=== PATIENT | male | born 1960 | race Caucasian/White ===

== ENCOUNTER → 2019-01-24 | Outpatient (CLI) | payer OTHER, SELFPAY ==
--- NOTE | 2019-01-24 12:04 | RAD_ITS ---
STUDY: X-RAY - LUMBAR SPINE REASON FOR EXAM: Male, 58 years old. Lower back pain TECHNIQUE: 5 view(s) of the lumbar spine were obtained. COMPARISON: None FINDINGS: There is straightening of the normal lumbar lordosis. There is a mild levoscoliosis of the lumbar spine. There is a normal alignment of the vertebrae in the lateral view. Normal vertebral bodies and endplates. Mild disc space narrowing. There is no demonstrated fracture. The soft tissue structures are unremarkable. Normal SI joints. RAD/L/S Spine Min 4 Views IMPRESSION: Degenerative changes of the spine, as detailed above. Electronically Signed: Beck Cates MD at 12:44 EDT , Service support ,
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
== END | disposition home or self-care (01) ==
PROVIDERS: Family Provider Family Medicine; PCP Family Medicine; Referring Provider Family Medicine; Visit Provider Family Medicine
DX: M54.5 Low back pain (principal); M41.9 Scoliosis, unspecified
CPT/HCPCS: 72081; 72110

== ENCOUNTER → 2019-02-21 | Outpatient (CLI) | payer OTHER, SELFPAY ==
[2019-02-21 10:12] LABS: Absolute Lymphocyte Count 4.24 X10^3/uL (0.83-4.51); Absolute Neutrophil Count 3.7 X10^3/uL (2.0-7.7); Basophil# 0.05 X10^3/uL; Basophil% 0.6 % (0-1); Eosinophil# 0.11 X10^3/uL; Eosinophils% 1.3 % (0-5); Hematocrit 42.8 % (40-54); Hemoglobin 14.2 g/dL (13.0-16.5); Lymphocyte # 4.24 X10^3/ul (4.0); Lymphocyte % 49.5 % (19-41); Mean Corp Hgb Conc 33.2 g/dL (32-36); Mean Corpuscular Hgb 29.4 pg (27.0-32.0); Mean Corpuscular Volume 88.6 fL (80-94); Mean Platelet Vol. 10.7 fl (6.2-12.0); Monocyte# 0.48 X10^3/uL; Monocyte% 5.6 % (0-10); NRBC Flagged by Analyzer 0 % (0-5); Neutrophil # 3.67 X10^3/uL (2.7-7.7); Neutrophil % 42.8 % (47-70); Platelet Count 187 K/mm3 (150-450); RBC Distribution Width CV 13.1 % (11.6-14.6); RBC Distribution Width SD 42.3 fl (35.1-43.9); Red Blood Count 4.83 M/mm3 (4.6-6.2); White Blood Count 8.6 K/mm3 (4.4-11.0)
[2019-02-21 10:43] LABS: ALB/GLOB Ratio 1.4 RATIO (0.9-2.4); AST(SGOT) 18 U/L (15-37); Alanine Aminotransfer ALT/SGPT 26 U/L (16-61); Albumin, Serum 3.9 g/dL (3.2-5.0); Alkaline Phosphatase 81 U/L (45-117); Anion Gap 6 (5-15); BUN 18 mg/dL (7-18); BUN/Creat Ratio 16.8 RATIO (10-20); Calcium,Total 8.7 mg/dL (8.5-10.1); Chloride 107 mmol/L (98-107); Cholesterol 200 mg/dL (200); Creatinine, Serum 1.07 mg/dL (0.70-1.30); EST Glomerular Filtration Rate 75 mL/min (>60); Est Glom Filt Rate - Afr Amer 91 mL/min (>60); Globulin 2.7 g/dL (2.2-4.2); Glucose 100 mg/dL (74-106); High Density Lipoprotein 53 mg/dL; PSA,Total - Annual Screen 1.07 ng/mL (0.00-4.00); Potassium 4.6 mmol/L (3.5-5.1); Protein, Total 6.6 g/dL (6.4-8.2); Sodium Level 144 mmol/L (136-145); Thyroid Stim Hormone (TSH) 1.07 uIU/mL (0.358-3.74); Triglycerides 88 mg/dL; Very Low Density Lipoprotein 18 mg/dL (5-40)
[2019-02-21 10:47] LABS: Vitamin B12 227 pg/mL (211-911)
== END | disposition home or self-care (01) ==
LOC: MFPLAB 09:07
PROVIDERS: Family Provider Family Medicine; PCP Family Medicine; Referring Provider Family Medicine; Visit Provider Family Medicine
DX: Z00.00 Encounter for general adult medical examination without abnormal findings (principal); E53.8 Deficiency of other specified B group vitamins; Z12.5 Encounter for screening for malignant neoplasm of prostate
CPT/HCPCS: 36415; 80053; 80061; 82607; 84153; 84443; 85025; G0103

== ENCOUNTER 2019-03-15 08:24 | Day surgery (SDC) | payer OTHER, SELFPAY ==
[2019-02-27 08:09] VITALS: BMI 25.5
--- NOTE | 2019-03-04 11:59 | HP_ITS ---
Intake Vital Signs 02/27/19 Height 6 ft 2 in 02/27/19 Weight: 199 lb 02/27/19 Body Mass Index (BMI) 25.5 02/27/19 Blood Pressure 151/88 H 02/27/19 Blood Pressure Location Rt brachial 02/27/19 Respiratory Rate 18 Intake Visit Reasons: C-Scope Consult, Subcutaneous Mass Lt Thigh Shirt Operator Required: No Is patient in pain?: No Allergies No Known Allergies Allergy (Unverified 02/27/19 08:09) Medications melatonin 5 mg capsule mg PO cap 02/27/19 [History Confirmed 02/27/19] vitamin B complex tablet 1 tab PO DAILY 02/27/19 [History Confirmed 02/27/19] PFSH Medical History posterior left leg mass (Acute) Surgical History S/P appendectomy (Acute) s/p neck surgery (Acute) Family History Mother Hypertension Social History (Updated 03/04/19 @ 12:00 by Gregg Payton MD) Smoking Status: Never smoker alcohol intake: current alcohol intake frequency: a few times a month HPI HPI HPI: SUSAN DIAS, is a 58 M who presents to the office today for HPI HPI Surgical H&P: Yes HPI: SUSAN DIAS, is a 58 M who presents to the office today for Presents for screening colonoscopy.Patient has no family history of colon cancer. His weight is been stable. He has been tolerating a diet without difficulty.Patient has never had a colonoscopy. Patient is also concerned about a mass on the posterior aspect of his left thigh it is been slightly growing over the last several years. ROS General General: No weight change, appetite, fatigue, colon cancer, breast cancer or weakness HEENT HEENT: No difficulty swallowing, eye injury, eye surgery, swollen glands or hoarseness Endo Endocrine: No thyroid disease, diabetes mellitus, thyroid cancer, Hair loss, heat intolerance or cold intolerance Skin Skin: No rash or changing moles Breast Breast: No left breast lump, right breast lump, nipple discharge, breast pain, abnormal mammogram, abnormal US or breast enlargement Musc Musculoskeletal: Yes back problems; no arthritis, rheumatoid arthritis, gout or joint pain Cardio Cardiovascular: No murmur, pacemaker, heart disease, atrial fibrillation, high blood pressure, heart attack, heart stent, palpitations, shortness of breat with exertion or chest pain Psych Psychiatric: No depression, anxiety or hearing voices Resp Respiratory: No shortness of breath, No sleep apnea, No cough, No COPD, No asthma, No emphysema, No wheezing Gastro Gastrointestinal: No abdominal pain, No nausea or vomiting, No diarrhea, No constipation, No blood in stool, No acid reflux, No hemorrhoids, No ulcers, No gallbladder problem, No black,tarry stools Arnold Hematologic: No blood thinners, No blood disorders, No bleeding, No anemia, No blood clots Neuro Neurologic: No system reviewed and no additional complaints, except as docu, No as per HPI, No abnormal walking, No abnormal hearing, No abnormal movements, No abnormal speech, No behavioral changes, No burning sensations, No confusion, No seizure-like activity, No unsteadiness, No dizziness, No localized weakness, No frequent falls, No headache(s), No lack of coordination, No loss of vision, No memory loss, Yes numbness, No other visual disturbances, No radiating pain, No restless legs, No sensory deficit, No fainting, Yes tingling, No tremor(s), No weakness, No other Exam Const General: no acute distress, well developed, well hydrated Orientation: oriented to person, oriented to place, oriented to time [facility] Head: normocephalic, atraumatic Ears: external ears normal Mouth: moist mucous membranes Eyes Sclera: sclerae normal Pupils: normal by confrontation Neck Neck: no lymphadenopathy noted Neck mass: No Thyroid: thyroid normal, symmetrical Chest Chest palpation & inspection: normal inspection of the chest Breast Palpation: No nipple discharge Resp Effort & Inspection: normal respiratory effort Auscultation: clear to auscultation bilaterally Percussion: percussion normal Cardio Rate: regular rate Rhythm: regular rhythm Heart Sounds: no murmurs GI Palpation: soft, no hepatosplenomegaly, no masses, nontender Rectal Exam: other Other: Rectal exam deferred. Skin Other: Patient has a rather large well-circumscribed subcutaneous mass in the posterior aspect of his left thigh above the knee. It is nontender. There is no signs of cellulitis. It does not appear to be contiguous with the joint. Extrem General: normal to inspection, no clubbing, cyanosis or edema Assessment & Plan Problems 1. Encounter for screening colonoscopy Z12.11 2. Lesion of subcutaneous tissue L98.9 Plan I have discussed the above with the patient. I have offered the patient colonoscopy for evaluation. I have explained the risks/benefits of the procedure and described the procedure. I have discussed the risks with the patient, including but not limited to: infection, bleeding, perforation of the GI tract requiring emergency surgery, inability to complete the procedure, injury to any internal organs, complications of anesthesia, etc. - the patient understands and agrees to proceed. I have answered all the patient's questions to the patient's satisfaction and the patient has no further questions. The patient has been given instructions for the colon cleansing preparation. Once is complete we will then assess the best surgical interventions for the subcutaneous lesion on his posterior thigh. Given its overall size and its location I think this would be best removed in the OR. Orders Orders: Colonoscopy 02/27/19 Z12.11 Coding Level of Care Code Off vis,new,level 3 Diagnoses Encounter for screening colonoscopy Z12.11 Lesion of subcutaneous tissue L98.9 03/04/19 1200 <Electronically signed by Gregg evans MD> Date _ Gregg Payton MD I have re-examined the patient. There are no clinical changes since date of exam.
[2019-03-15] VITALS (7 sets, daily range): BP systolic 115–127; BP diastolic 76–85; PULSE 64–88; RESP 16–18; TEMP 36.3–36.9; O2SAT 95–99; BMI 24.7
[2019-03-15] MEDS: Lactated Ringers 1,000 ML 75 ML IV (09:13)
--- NOTE | 2019-03-15 16:52 | OP.ENDO_ITS ---
03/16/2019 Hayden Chambers [address] [place] [address] Re : Colonoscopy procedure for Parker Ziegler Dear Dr. Chambers This procedure was performed on Friday, March 15, 2019. My impressions and recommendations are as follows: Impressions : - Non-bleeding internal hemorrhoids. - Diverticulosis in the sigmoid colon. No specimens collected. - The examined portion of the ileum was normal. - The examination was otherwise normal. Recommendations : - Discharge patient to home. - Resume previous diet. - Continue present medications. - Repeat colonoscopy in 10 years for screening purposes. - Return to my office in 1 week. My findings are described in the full procedure note, which is enclosed. If I can be of further assistance, please feel free to contact me at Doctor phone number(s): , Fax: [phone], Work: . Sincerely, MD Gregg Tierney MD 03/15/2019 10:32:38 AM This report has been signed electronically.
== END 2019-03-15 11:20 | disposition home or self-care (01) ==
LOC: EN 08:25 → AC 08:29
PROVIDERS: Family Provider Family Medicine; PCP Family Medicine; Referring Provider Family Medicine; Visit Provider Surgery
PROC: 0DJD8ZZ Inspection of Lower Intestinal Tract, Via Natural or Artificial Opening Endoscopic (ICD-10-PCS; CPT 45378; principal; 2019-03-15 09:40)
DX: Z12.11 Encounter for screening for malignant neoplasm of colon (principal); K57.30 Diverticulosis of large intestine without perforation or abscess without bleeding; K64.8 Other hemorrhoids
CPT/HCPCS: 45378; J7120; J2405

== ENCOUNTER → 2020-02-28 08:55 | Outpatient (CLI) | payer OTHER, SELFPAY ==
[2019-03-15 09:01] VITALS: BMI 24.7
[2020-02-28 10:11] LABS: Absolute Lymphocyte Count 4.74 X10^3/uL (0.83-4.51); Absolute Neutrophil Count 4.9 X10^3/uL (2.0-7.7); Basophil# 0.05 X10^3/uL; Basophil% 0.5 % (0-1); Eosinophil# 0.13 X10^3/uL; Eosinophils% 1.3 % (0-5); Hematocrit 42.3 % (40-54); Hemoglobin 14.2 g/dL (13.0-16.5); Lymphocyte # 4.74 X10^3/ul (4.0); Lymphocyte % 45.8 % (19-41); Mean Corp Hgb Conc 33.6 g/dL (32-36); Mean Corpuscular Hgb 30.7 pg (27.0-32.0); Mean Corpuscular Volume 91.6 fL (80-94); Mean Platelet Vol. 10.1 fl (6.2-12.0); Monocyte# 0.49 X10^3/uL; Monocyte% 4.7 % (0-10); NRBC Flagged by Analyzer 0 % (0-5); Neutrophil % 47.4 % (47-70); Platelet Count 172 K/mm3 (150-450); RBC Distribution Width CV 13.1 % (11.6-14.6); RBC Distribution Width SD 42.5 fl (35.1-43.9); Red Blood Count 4.62 M/mm3 (4.6-6.2); White Blood Count 10.3 K/mm3 (4.4-11.0)
[2020-02-28 10:32] LABS: ALB/GLOB Ratio 1.2 RATIO (0.9-2.4); AST(SGOT) 18 U/L (15-37); Alanine Aminotransfer ALT/SGPT 26 U/L (16-61); Albumin, Serum 3.9 g/dL (3.2-5.0); Alkaline Phosphatase 88 U/L (45-117); Anion Gap 6 (5-15); BUN 19 mg/dL (7-18); BUN/Creat Ratio 15.7 RATIO (10-20); Calcium,Total 8.7 mg/dL (8.5-10.1); Chloride 107 mmol/L (98-107); Cholesterol 194 mg/dL (200); Creatinine, Serum 1.21 mg/dL (0.70-1.30); EST Glomerular Filtration Rate 65 mL/min (>60); Est Glom Filt Rate - Afr Amer 79 mL/min (>60); Globulin 3.2 g/dL (2.2-4.2); Glucose 122 mg/dL (74-106); High Density Lipoprotein 43 mg/dL; PSA,Total - Annual Screen 0.82 ng/mL (0.00-4.00); Protein, Total 7.1 g/dL (6.4-8.2); Sodium Level 140 mmol/L (136-145); Triglycerides 156 mg/dL; Very Low Density Lipoprotein 31 mg/dL (5-40)
[2020-02-29 11:08] LABS: Hemoglobin A1c 5.5 % (3.8-5.6)
== END ==
PROVIDERS: PCP Family Medicine; Referring Provider Family Medicine; Visit Provider Family Medicine
DX: Z00.00 Encounter for general adult medical examination without abnormal findings (principal); Z12.5 Encounter for screening for malignant neoplasm of prostate; R73.09 Other abnormal glucose
CPT/HCPCS: 36415; 80053; 80061; 83036; 84153; 85025; G0103

== ENCOUNTER 2020-04-19 05:41 | Day surgery (SDC) | payer OTHER, SELFPAY ==
[2020-03-01 09:17] VITALS: BMI 24.7
--- NOTE | 2020-03-12 05:11 | HP_ITS ---
Intake Vital Signs 03/01/20 BMI 24.7 03/01/20 Height 6 ft 2 in 03/01/20 Weight: 202 lb 03/01/20 BMI 25.9 03/01/20 BP 114/73 03/01/20 Blood Pressure Location Rt brachial 03/01/20 Position Sitting 03/01/20 Respiration 18 03/01/20 Pulse 80 03/01/20 Pulse Source Monitor 03/01/20 Temp 97.6 F L 03/01/20 Temp Source Temporal 03/01/20 Pulse Oximetry (%) 96 03/01/20 Oxygen Delivery Method room air Intake Visit Reasons: SUBCUTANEOUS MASS Chief Complaint: posterior left leg mass Bulk Intake Worker Required: No Is patient in pain?: No Allergies No Known Allergies Allergy (Verified 03/01/20 09:17) Medications melatonin 5 mg capsule 5 mg PO QHS cap 02/27/19 [History Confirmed 03/01/20] vitamin B complex 1 tab PO DAILY 02/27/19 [History Confirmed 03/01/20] PFSH Medical History posterior left leg mass (Acute) Surgical History History of colonoscopy (Acute ~2019) S/P appendectomy (Acute) s/p neck surgery (Acute) Family History Mother Hypertension Social History (Updated 03/12/20 @ 17:[address] Gregg Payton MD) Smoking Status: Never smoker alcohol intake: current alcohol intake frequency: a few times a month substance use type: does not use HPI HPI Surgical H&P: Yes HPI: SUSAN DIAS, is a 59 M who presents to the office today for Evaluation of a subcutaneous mass on his left posterior thigh. Patient has had this there for many years. Is been gradually increasing in size. Occasionally will get uncomfortable for him he is never had any trauma to the area it is never been infected nor draining. ROS General General: No weight change, appetite, fatigue, colon cancer, breast cancer or weakness HEENT HEENT: No difficulty swallowing, eye injury, eye surgery, swollen glands or hoarseness Endo Endocrine: No thyroid disease, diabetes mellitus, thyroid cancer, Hair loss, heat intolerance or cold intolerance Skin Skin: No rash or changing moles Breast Breast: No left breast lump, right breast lump, nipple discharge, breast pain, abnormal mammogram, abnormal US or breast enlargement Musc Musculoskeletal: Yes back problems; no arthritis, rheumatoid arthritis, gout or joint pain Cardio Cardiovascular: No murmur, pacemaker, heart disease, atrial fibrillation, high blood pressure, heart attack, heart stent, palpitations, shortness of breat with exertion or chest pain Psych Psychiatric: No depression, anxiety or hearing voices Resp Respiratory: No shortness of breath, No sleep apnea, No cough, No COPD, No asthma, No emphysema, No wheezing Gastro Gastrointestinal: No abdominal pain, No nausea or vomiting, No diarrhea, No constipation, No blood in stool, No acid reflux, No hemorrhoids, No ulcers, No gallbladder problem, No black,tarry stools Arnold Hematologic: No blood thinners, No blood disorders, No bleeding, No anemia, No blood clots Neuro Neurologic: No system reviewed and no additional complaints, except as docu, No as per HPI, No abnormal walking, No abnormal hearing, No abnormal movements, No abnormal speech, No behavioral changes, No burning sensations, No confusion, No seizure-like activity, No unsteadiness, No dizziness, No localized weakness, No frequent falls, No headache(s), No lack of coordination, No loss of vision, No memory loss, Yes numbness, No other visual disturbances, No radiating pain, No restless legs, No sensory deficit, No fainting, Yes tingling, No tremor(s), No weakness, No other Exam Const General: no acute distress, well developed, well hydrated Orientation: oriented to person, oriented to place, oriented to time [facility] Head: normocephalic, atraumatic Ears: external ears normal Mouth: moist mucous membranes Eyes Sclera: sclerae normal Pupils: normal by confrontation Neck Neck: no lymphadenopathy noted Neck mass: No Thyroid: thyroid normal, symmetrical Chest Chest palpation & inspection: normal inspection of the chest Breast Palpation: No nipple discharge Resp Effort & Inspection: normal respiratory effort Auscultation: clear to auscultation bilaterally Percussion: percussion normal Cardio Rate: regular rate Rhythm: regular rhythm Heart Sounds: no murmurs GI Palpation: soft, no hepatosplenomegaly, no masses, nontender Rectal Exam: other Other: Rectal exam deferred. Skin Other: Patient has approximately a 4 cm subcutaneous fatty lesion on his left posterior lower thigh. Is nontender and freely mobile there is no sign of redness or infection Extrem General: normal to inspection, no clubbing, cyanosis or edema Assessment & Plan Problems 1. Lesion of subcutaneous tissue L98.9 Plan My plan is to excise this in the OR. Risk benefits include bleeding infection. There is a chance that this could recur and there is a chance to having numbness in the back of his posterior thigh area. Patient also understands that there is a risk of blood clots heart attacks pneumonia strokes up to and including pulmonary embolus and/or . All questions asked were answered and he is willing to proceed. Coding Level of Care Code Off vis,new,level 3 Diagnoses Lesion of subcutaneous tissue L98.9 COVID (Procedure Consent) Procedure Criteria Procedure Criteria: Yes Elective The surgeon/proceduralist and patient have discussed in detail the risk of exposure to and/or potential harm posed by the COVID-19 virus with having a surgery/procedure at this time versus the risk of? delaying the surgery/procedure. It is not possible to know either the risk of delaying the surgery or procedure or chance of getting an infection with perfect accuracy, but a joint decision was made between the patient and the surgeon/proceduralist ?to proceed at this time with the scheduled surgery/procedure as indicated on the consent form. <Electronically signed by Gregg Payton MD> Date _ Gregg Payton MD I have re-examined the patient. There are no clinical changes since date of exam.
[2020-04-19] VITALS (7 sets, daily range): BP systolic 108–125; BP diastolic 62–82; PULSE 60–82; RESP 16; TEMP 36.1–36.6; O2SAT 95–97; BMI 25.6
[2020-04-19] MEDS: Lactated Ringers 1,000 ML 100 ML IV (06:32)
--- NOTE | 2020-04-19 07:03 | MASS_PTH ---
PATIENT: SUSAN DIAS LOC: [facility] U#:[id number] AGE/SX: 60/M ROOM: RE04/19/[address]: Dr. Gregg Payton MD : 1960 BED: DIS: 04/19/2020 SPEC #: [id number] RECD: 04/19/20 10:38 STATUS: WHIT FIORDALIZA #: [id number] RADHA: 04/19/20 07:[address]: Gregg Payton DEPT: SURGICAL PATHOLOGY RECD BY: Martin Valentin ENTERED: 04/19/20 12:12 SP TYPE: Mass OTHR DR: Dr. Hayden Chambers MD Tissues: Thigh, NOS Procedures: Surgery Specimen Level III HEADER OPERATION: Excision posterior thigh mass PRE-OP DIAGNOSIS: Lesion of subcutaneous tissue TISSUE SUBMITTED: Posterior left thigh mass MICROSCOPIC DIAGNOSIS Left posterior thigh mass, excision: Mature adipose tissue consistent with lipoma. AM:santana 9/28/20 MICROSCOPIC DESCRIPTION Slides are reviewed. GROSS DESCRIPTION Received in fixative is one container labeled with the patient's name and designated posterior left thigh mass. The specimen consists of an irregular piece of adipose tissue measuring 5 x 4 x 1.5 cm. The external surface is inked. Sections reveal yellow adipose cut surfaces without areas of hemorrhage, necrosis or cystic degeneration. Nuclear Process Engineer sections are submitted in two cassettes. / SJ:santana 04/19/20 TC:1 CPT: 76139
--- NOTE | 2020-04-19 07:05 | PCM.HP.BLA ---
History and Physical Date of Admission: 04/19/20 [facility] Medical Records Department [address] [place] [address] History and Physical MR#: [id number] Acct: [id number] Name: SUSAN DIAS Rep #: [id number] : 1960 58 From: Gregg Payton MD PCP: Hayden Chambers MD Status: [facility] Location: [place] [address]- Intake Vital Signs 02/27/19 Height 6 ft 2 in 02/27/19 Weight: 199 lb 02/27/19 Body Mass Index (BMI) 25.5 02/27/19 Blood Pressure 151/88 H 02/27/19 Blood Pressure Location Rt brachial 02/27/19 Respiratory Rate 18 Intake Visit Reasons: C-Scope Consult, Subcutaneous Mass Lt Thigh Recruiter Manager Required: No Is patient in pain?: No Allergies No Known Allergies Allergy (Unverified 02/27/19 08:09) Medications melatonin 5 mg capsule mg PO cap 02/27/19 [History Confirmed 02/27/19] vitamin B complex tablet 1 tab PO DAILY 02/27/19 [History Confirmed 02/27/19] PFSH Medical History posterior left leg mass (Acute) Surgical History S/P appendectomy (Acute) s/p neck surgery (Acute) Family History Mother Hypertension Social History (Updated 03/04/19 @ 12:00 by Gregg Payton MD) Smoking Status: Never smoker alcohol intake: current alcohol intake frequency: a few times a month HPI HPI HPI: SUSAN DIAS is a 58 M who presents to the office today for HPI HPI Surgical H&P: Yes HPI: SUSAN DIAS is a 58 M who presents to the office today for Presents for screening colonoscopy.Patient has no family history of colon cancer. His weight is been stable. He has been tolerating a diet without difficulty.Patient has never had a colonoscopy. Patient is also concerned about a mass on the posterior aspect of his left thigh it is been slightly growing over the last several years. ROS General General: No weight change, appetite, fatigue, colon cancer, breast cancer or weakness HEENT HEENT: No difficulty swallowing, eye injury, eye surgery, swollen glands or hoarseness Endo Endocrine: No thyroid disease, diabetes mellitus, thyroid cancer, Hair loss, heat intolerance or cold intolerance Skin Skin: No rash or changing moles Breast Breast: No left breast lump, right breast lump, nipple discharge, breast pain, abnormal mammogram, abnormal US or breast enlargement Musc Musculoskeletal: Yes back problems; no arthritis, rheumatoid arthritis, gout or joint pain Cardio Cardiovascular: No murmur, pacemaker, heart disease, atrial fibrillation, high blood pressure, heart attack, heart stent, palpitations, shortness of breat with exertion or chest pain Psych Psychiatric: No depression, anxiety or hearing voices Resp Respiratory: No shortness of breath, No sleep apnea, No cough, No COPD, No asthma, No emphysema, No wheezing Gastro Gastrointestinal: No abdominal pain, No nausea or vomiting, No diarrhea, No constipation, No blood in stool, No acid reflux, No hemorrhoids, No ulcers, No gallbladder problem, No black,tarry stools Arnold Hematologic: No blood thinners, No blood disorders, No bleeding, No anemia, No blood clots Neuro Neurologic: No system reviewed and no additional complaints, except as docu, No as per HPI, No abnormal walking, No abnormal hearing, No abnormal movements, No abnormal speech, No behavioral changes, No burning sensations, No confusion, No seizure-like activity, No unsteadiness, No dizziness, No localized weakness, No frequent falls, No headache(s), No lack of coordination, No loss of vision, No memory loss, Yes numbness, No other visual disturbances, No radiating pain, No restless legs, No sensory deficit, No fainting, Yes tingling, No tremor(s), No weakness, No other Exam Const General: no acute distress, well developed, well hydrated Orientation: oriented to person, oriented to place, oriented to time [facility] Head: normocephalic, atraumatic Ears: external ears normal Mouth: moist mucous membranes Eyes Sclera: sclerae normal Pupils: normal by confrontation Neck Neck: no lymphadenopathy noted Neck mass: No Thyroid: thyroid normal, symmetrical Chest Chest palpation & inspection: normal inspection of the chest Breast Palpation: No nipple discharge Resp Effort & Inspection: normal respiratory effort Auscultation: clear to auscultation bilaterally Percussion: percussion normal Cardio Rate: regular rate Rhythm: regular rhythm Heart Sounds: no murmurs GI Palpation: soft, no hepatosplenomegaly, no masses, nontender Rectal Exam: other Other: Rectal exam deferred. Skin Other: Patient has a rather large well-circumscribed subcutaneous mass in the posterior aspect of his left thigh above the knee. It is nontender. There is no signs of cellulitis. It does not appear to be contiguous with the joint. Extrem General: normal to inspection, no clubbing, cyanosis or edema Assessment & Plan Problems 1. Encounter for screening colonoscopy Z12.11 2. Lesion of subcutaneous tissue L98.9 Plan I have discussed the above with the patient. I have offered the patient colonoscopy for evaluation. I have explained the risks/benefits of the procedure and described the procedure. I have discussed the risks with the patient, including but not limited to: infection, bleeding, perforation of the GI tract requiring emergency surgery, inability to complete the procedure, injury to any internal organs, complications of anesthesia, etc. - the patient understands and agrees to proceed. I have answered all the patient's questions to the patient's satisfaction and the patient has no further questions. The patient has been given instructions for the colon cleansing preparation. Once is complete we will then assess the best surgical interventions for the subcutaneous lesion on his posterior thigh. Given its overall size and its location I think this would be best removed in the OR. Orders Orders: Colonoscopy 02/27/19 Z12.11 Coding Level of Care Code Off vis,new,level 3 Diagnoses Encounter for screening colonoscopy Z12.11 Lesion of subcutaneous tissue L98.9 <Electronically signed by Gregg Payton MD> Date Gregg Payton MD I have re-examined the patient. There are no clinical changes since date of exam.
[2020-04-19] MEDS: Cefazolin 2 GM in 0.9% Normal Saline 100 ML IV (07:40)
--- NOTE | 2020-04-19 07:58 | PCM.OPRPT ---
Problem List (1) Lesion of subcutaneous tissue Status: Acute Report of Operation Date of Procedure: 04/19/20 Pre-Operative Diagnosis: Lesion of subcutaneous tissue left posterior leg Post-Operative Diagnosis: Same Surgery/Procedure Performed:: Excision of a 5 x 7 cm subcutaneous lesion to left posterior leg Type of Anesthesia:: General Anesthesiologist: Francisco Javier Membreno Specimen's removed: 7 cm subcutaneous lesion to right posterior leg Drains: None Estimated Blood Loss (mL): < 25 cc Fluids Replaced: 600 cc LR Description of Procedure: Patient was brought in the operating room. Placed in the supine position. Under excellent general endotracheal ovation patient was placed in the prone position a properly padded. Left posterior leg was sterilely prepped draped in usual fashion. Local was injected. I dissected down into the subcutaneous tissues and removed a 7 cm fatty subcutaneous mass that was anterior to the fascia of the posterior leg. Used electrocautery for good of a stasis. I injected more local. I brought the wound together with deep dermal stitches of 3-0 Vicryl. Then a running 4-0 Monocryl. Steri-Strips were applied sterile dressings were applied and the patient tolerated the procedure well. - Admit VTE Documentation VTE Present on Admission: No VTE Mechan Device Prophylaxis: SCD's VTE Pharm Prophylaxis ordered?: No Reason prophylaxis not ordered:: Treatment Not Indicated [id number]: Other Procedure See Report - [place] [id number]
[2020-04-19] MEDS: Bupivacaine Mpf 0.5% 30 ML VIAL (08:00)
--- NOTE | 2020-04-19 08:02 | DCINST_ITS ---
Discharge Diet: Light diet - advance as tolerated - If you have questions about your diet instructions, please talk to your doctor. Discharge Activity: May Not Drive - for 1 week or while taking narcotic pain medicine. May shower in (days): 1 Lifting Restrictions: 10 pounds Call your doctor if your incision/area has: Continuous Slow Oozing, Sudden Increased Bleeding, Increased Pain/ Swelling, Increased Redness, Foul Smelling Discharge Call your doctor if you observe: Fever of 101 or Higher Suture Line Care: Avoid Pulling/Pushing, Avoid Pinching/Bending Additional Dressing/Incision Instructions:: Change or remove dressing in 4 days. Leave steri-strips in place for 1 week. Allergies/Adverse Reactions: Allergies No Known Allergies Allergy (Verified 04/10/20 10:10) Medications to take at Discharge Oxycodone HCl/Acetaminophen [Percocet 5/325] 1 - 2 tablet PO Q4H PRN PRN 6 Days #20 tablet 04/19/20 The following prescriptions were given: Oxycodone HCl/Acetaminophen [Percocet 5/325] 1 - 2 tablet PO Q4H PRN PRN 6 Days #20 tablet PRN Reason: Pain Transmission Status: Received by [facility]/pharmacy #[id number] Primary Care Physician: Hayden Chambers MD [Primary Care Provider] - Test Results: Test results from this visit will be discussed in further detail at your follow- up appointment, if applicable. Please Follow Up With: Gregg Payton MD - [phone] When: Call to make an appointment to be seen in about 10 days.
== END 2020-04-19 09:35 | disposition home or self-care (01) ==
LOC: SDC 05:42 → AC 05:42
PROVIDERS: Anesthesiology; PCP Family Medicine; Referring Provider Surgery; Visit Provider Surgery
PROC: (CPT 11406; principal; 2020-04-19 07:15)
DX: L98.9 Disorder of the skin and subcutaneous tissue, unspecified (principal); Z11.59 Encounter for screening for other viral diseases
CPT/HCPCS: 11406; 12032; 87635; 88304; 88305; C9803; J7120; J2405; U0003

== ENCOUNTER → 2021-01-29 12:11 | Outpatient (CLI) | payer OTHER, SELFPAY ==
[2020-04-19 06:23] VITALS: BMI 25.6
--- NOTE | 2021-01-29 12:29 | RAD_ITS ---
STUDY: X-RAY - CERVICAL SPINE REASON FOR EXAM: Male, 60 years old. NECK PAIN TECHNIQUE: 5 view(s) of the cervical spine were obtained. COMPARISON: None FINDINGS: Normal anterior atlantoaxial articulation. Normal odontoid process. There is straightening of the normal cervical lordosis. Sentence of prior fusion at the C4-C5 level. Moderate degree of disc space narrowing at the C5-C6 and C6-C7 levels with spondylosis. Normal visualized intervertebral neuroforamina. The soft tissue structures are unremarkable. RAD/Cerv Spine 4 or 5 Views IMPRESSION: Prior fusion at the C4-C5 level with disc space narrowing and spondylosis at the C5-C6 and C6-C7 levels. Electronically Signed: Fly Mendez MD at 15:34 EDT , Service support ,
== END ==
PROVIDERS: PCP Family Medicine; Referring Provider Family Medicine; Visit Provider Family Medicine
DX: M54.2 Cervicalgia (principal)
CPT/HCPCS: 72050

== ENCOUNTER → 2023-09-10 | Outpatient (CLI) | payer OTHER, SELFPAY ==
[2023-09-10 16:02] LABS: Absolute Lymphocyte Count 7.01 X10^3/uL (0.83-4.51); Absolute Neutrophil Count 4.9 X10^3/uL (2.0-7.7); Basophil# 0.07 X10^3/uL; Basophil% 0.6 % (0-1); Eosinophil# 0.13 X10^3/uL; Hematocrit 42.1 % (40-54); Hemoglobin 13.4 g/dL (13.0-16.5); Lymphocyte # 7.01 X10^3/ul (0.83-4.51); Lymphocyte % 55.6 % (19-41); Mean Corp Hgb Conc 31.8 g/dL (32-36); Mean Corpuscular Hgb 28.2 pg (27.0-32.0); Mean Corpuscular Volume 88.6 fL (80-94); Mean Platelet Vol. 10.2 fl (6.2-12.0); Monocyte# 0.45 X10^3/uL; Monocyte% 3.6 % (0-10); NRBC Flagged by Analyzer 0 % (0-5); Neutrophil # 4.93 X10^3/uL (2.7-7.7); POSITIVE DIFFERENTIAL YES; POSITIVE MORPHOLOGY YES; Platelet Count 212 K/mm3 (150-450); RBC Distribution Width CV 12.6 % (11.6-14.6); RBC Distribution Width SD 41.1 fl (35.1-43.9); Red Blood Count 4.75 M/mm3 (4.6-6.2); White Blood Count 12.6 K/mm3 (4.4-11.0)
[2023-09-10 16:10] LABS: Differential Indicated SCAN CRITERIA MET
[2023-09-10 16:39] LABS: Vitamin B12 309 pg/mL (211-911)
[2023-09-10 16:47] LABS: Differential Comment SCANNED; Reactive Lymphocyte 2+
[2023-09-10 16:49] LABS: ALB/GLOB Ratio 1.4 RATIO (0.9-2.4); AST(SGOT) 18 U/L (15-37); Alanine Aminotransfer ALT/SGPT 27 U/L (16-61); Albumin, Serum 3.8 g/dL (3.2-5.0); Alkaline Phosphatase 81 U/L (45-117); Anion Gap 2 (5-15); BUN 19 mg/dL (7-18); BUN/Creat Ratio 14.8 RATIO (10-20); Calcium,Total 8.8 mg/dL (8.5-10.1); Chloride 109 mmol/L (98-107); Cholesterol 192 mg/dL (200); Creatinine, Serum 1.28 mg/dL (0.70-1.30); EST Glomerular Filtration Rate 60 mL/min (>60); Est Glom Filt Rate - Afr Amer 73 mL/min (>60); Globulin 2.8 g/dL (2.2-4.2); Glucose 96 mg/dL (74-106); High Density Lipoprotein 42 mg/dL; PSA,Total - Annual Screen 0.87 ng/mL (0.00-4.00); Potassium 3.9 mmol/L (3.5-5.1); Protein, Total 6.6 g/dL (6.4-8.2); Sodium Level 141 mmol/L (136-145); Thyroid Stim Hormone (TSH) 1.01 uIU/mL (0.358-3.74); Triglycerides 184 mg/dL; Very Low Density Lipoprotein 37 mg/dL (5-40)
--- OUTSIDE RECORDS SUMMARY | 2023-09-10 17:13 | XMS RPT_ITS | CCD ---
Author Name Unknown Address [email or web address] [place] [address] Organization [facility] Care Team Providers Care Brim Stiffener Name Role Phone Davonmarlin Malik Vickers Unavailable Unavailable Newbill, Malikcarmen Vickers Unavailable Unavailable Hernandez, Gaurav Unavailable Unavailable Newbill, Malik Stonerel Unavailable Unavailable Newbill, Malikcarmen Stonerel Unavailable Unavailable Hernandez, Gaurav Unavailable Unavailable Tourlas, Tyler Unavailable Unavailabl e Hernandez, Gaurav Unavailable Unavailable Tourlas, Tyler Unavailable Unavailabl e Tourlas, Tyler Unavailable Unavailabl e Hernandez, Gaurav Unavailable Unavailable Tourlas, Tyler Unavailable Unavailabl e Tourlas, Tyler Unavailable Unavailabl e Hernandez, Gaurav Unavailable Unavailable Tourlas, Tyler Unavailable Unavailabl e Tourlas, Tyler Unavailable Unavailabl e Hernandez, Gaurav Unavailable Unavailable Tourlas, Tyler Unavailable Unavailabl e Hernandez, Gaurav Unavailable Unavailable Tourlas, Tyler Unavailable Unavailabl e Tourlas, Tyler Unavailable Unavailabl e Hernandez, Gaurav Unavailable Unavailable Tourlas, Tyler Unavailable Unavailabl e Tourlas, Tyler Unavailable Unavailabl e Hernandez, Gaurav Unavailable Unavailable Results Test Name Value Interpretation Reference Range Facil ity Encounters Encounter Date Encounter Type Care Provider Facility Start: 12-09-2017 End: 12-09-2017 Ambulatory Tyler Tourlas Facility:[facility] Start: 06-15-2017 End: 06-16-2017 Ambulatory Tyler Tourlas Facility[facility] Start: 05-28-2017 End: 05-28-2017 Ambulatory Tyler Tourlas Facility:[facility] Start: 05-26-2017 End: 05-27-2017 Ambulatory Tyler Tourlas Facility:[facility] Start: 05-06-2017 End: 05-07-2017 Ambulatory [facility] Start: 04-30-2017 End: 05-01-2017 Ambulatory Malik Mejia Facility:[facility] Payers Date Payer Category Payer Unknown Summary Purpose Family History No Family History Records Found Advance Directives No Advanced Directives Records Found Additional Source Comments (unrecognized sect ion and content) No Status Records Found INFORMATION SOURCE (unrecogn ized section and content) FOR RECORDS PERTAINING TO PATIENTS WHO ARE OR HAVE BEEN ENROLLED IN A CHEMICAL DEPENDENCY/SUBSTANCEABUSE PROGRAM, SOME INFORMATION MAY BE OMITTED. This clinical summary was aggregated from multiple sources. Caution should be exercised in using it in the provision of clinical care. This summary normalizes information from multiple sources, and as a consequence, information in this document may materially change the coding, format and clinical context of patient data. In addition, data may be omitted in some cases. CLINICAL DECISIONS SHOULD BE BASED ON THE PRIMARY CLINICAL RECORDS. [facility] [employer] [facility]. provides no warranty or guarantee of the accuracy or completeness of information in this document.
== END | disposition home or self-care (01) ==
LOC: MTLAB 15:13
PROVIDERS: PCP Family Medicine; Referring Provider Family Medicine; Visit Provider Family Medicine
DX: Z00.00 Encounter for general adult medical examination without abnormal findings (principal); Z12.5 Encounter for screening for malignant neoplasm of prostate; E53.8 Deficiency of other specified B group vitamins
CPT/HCPCS: 36415; 80053; 80061; 82607; 84153; 84443; 85025; G0103

== ENCOUNTER → 2023-10-07 | Outpatient (CLI) | payer OTHER, SELFPAY ==
[2023-10-07 17:43] LABS: Absolute Lymphocyte Count 5.45 X10^3/uL (0.83-4.51); Absolute Neutrophil Count 4.6 X10^3/uL (2.0-7.7); Basophil# 0.07 X10^3/uL; Basophil% 0.6 % (0-1); Eosinophil# 0.24 X10^3/uL; Eosinophils% 2.1 % (0-5); Hematocrit 41.7 % (40-54); Hemoglobin 13.5 g/dL (13.0-16.5); Lymphocyte # 5.45 X10^3/ul (0.83-4.51); Lymphocyte % 48.4 % (19-41); Mean Corp Hgb Conc 32.4 g/dL (32-36); Mean Corpuscular Hgb 28.4 pg (27.0-32.0); Mean Corpuscular Volume 87.8 fL (80-94); Mean Platelet Vol. 10.2 fl (6.2-12.0); Monocyte# 0.87 X10^3/uL; Monocyte% 7.7 % (0-10); NRBC Flagged by Analyzer 0 % (0-5); Neutrophil # 4.59 X10^3/uL (2.7-7.7); Neutrophil % 40.9 % (47-70); POSITIVE DIFFERENTIAL YES; POSITIVE MORPHOLOGY YES; Platelet Count 189 K/mm3 (150-450); RBC Distribution Width CV 12.8 % (11.6-14.6); RBC Distribution Width SD 41.4 fl (35.1-43.9); Red Blood Count 4.75 M/mm3 (4.6-6.2); White Blood Count 11.3 K/mm3 (4.4-11.0)
[2023-10-07 17:49] LABS: Differential Indicated SCAN CRITERIA MET
[2023-10-07 18:05] LABS: Differential Comment SCANNED
[2023-10-07 18:18] LABS: Anion Gap 4 (5-15); BUN 19 mg/dL (7-18); BUN/Creat Ratio 15.1 RATIO (10-20); Chloride 108 mmol/L (98-107); Creatinine, Serum 1.26 mg/dL (0.70-1.30); EST Glomerular Filtration Rate 61 mL/min (>60); Est Glom Filt Rate - Afr Amer 74 mL/min (>60); Glucose 95 mg/dL (74-106); Potassium 4.1 mmol/L (3.5-5.1); Sodium Level 140 mmol/L (136-145)
== END | disposition home or self-care (01) ==
LOC: MFPLAB 16:32
PROVIDERS: PCP Family Medicine; Visit Provider Family Medicine
DX: D72.829 Elevated white blood cell count, unspecified (principal); N28.9 Disorder of kidney and ureter, unspecified
CPT/HCPCS: 36415; 80048; 85025

== ENCOUNTER → 2023-11-23 | Outpatient (CLI) | payer OTHER, SELFPAY ==
--- NOTE | 2023-11-23 08:07 | RAD_ITS ---
STUDY: X-RAY - ESOPHAGUS (BARIUM SWALLOW) WITH FLUOROSCOPY REASON FOR EXAM: Male, 63 years old. Globus sensation TECHNIQUE: 14 view(s) of the esophagus were obtained following swallowing of barium. FLUOROSCOPY TIME (if supplied): (25 seconds) minutes/seconds. 15.4 mGy. COMPARISON: None. FINDINGS: There is no demonstrated esophageal foreign body. There is no demonstrated stricture or mucosal abnormality. Normal gastroesophageal junction, without a demonstrated hiatal hernia. The patient ingested a 12 mm tablet of barium without any difficulty. Normal visualized aortic arch and descending thoracic aorta. Normal visualized pulmonary parenchyma. Normal visualized osseous structures of the thorax. RAD/Esophagus Dual Contrast IMPRESSION: Normal plain film x-ray examination (barium swallow) of the esophagus. Electronically Signed: Fly Mendez MD at 10:02 EDT ,
== END | disposition home or self-care (01) ==
PROVIDERS: PCP Family Medicine; Referring Provider Family Medicine; Visit Provider Family Medicine
DX: R09.A2 Foreign body sensation, throat (principal)
CPT/HCPCS: 74221

== ENCOUNTER → 2025-05-24 | Outpatient (CLI) | payer MEDICARE, SELFPAY ==
[2025-05-24 15:10] LABS: Hematocrit 41.0 % (40-54); Hemoglobin 13.7 g/dL (13.0-16.5); Immature Granulocytes Count 0.020 X10^3/uL (0.0-0.0); Mean Corp Hgb Conc 33.4 g/dL (32-36); Mean Corpuscular Volume 87.6 fL (80-94); Mean Platelet Vol. 10.4 fl (6.2-12.0); NRBC Flagged by Analyzer 0 % (0-5); POSITIVE DIFFERENTIAL YES; POSITIVE MORPHOLOGY YES; Platelet Count 172 K/mm3 (150-450); RBC Distribution Width CV 12.9 % (11.6-14.6); RBC Distribution Width SD 41.5 fl (35.1-43.9); Red Blood Count 4.68 M/mm3 (4.6-6.2); White Blood Count 11.0 K/mm3 (4.4-11.0)
[2025-05-24 15:27] LABS: Differential Indicated SCAN CRITERIA MET
[2025-05-24 15:46] LABS: AST(SGOT) 26 U/L (<=37); Alanine Aminotransfer ALT/SGPT 18 U/L (<=46); Albumin, Serum 4.3 g/dL (3.4-4.8); Alkaline Phosphatase 76 U/L (40-129); Anion Gap 9 (5-15); BUN 15 mg/dL (4-19); BUN/Creat Ratio 13.4 RATIO (10-20); Calcium,Total 9.2 mg/dL (7.6-11.0); Carbon Dioxide 25.6 mmol/L (21.0-32.0); Chloride 106 mmol/L (98-108); Globulin 2.4 g/dL (2.2-4.2); Glucose 91 mg/dL (70-99); PSA,Total - Annual Screen 0.93 ng/mL (0.02-4.00); Potassium 4.2 mmol/L (3.3-5.1); Uric Acid 5.3 mg/dL (3.5-7.2); Vitamin B12 333 pg/mL (180-914)
[2025-05-24 19:55] LABS: Differential Comment SCANNED
== END | disposition home or self-care (01) ==
LOC: MFPLAB 11:43
PROVIDERS: PCP Family Medicine; Visit Provider Family Medicine
DX: Z12.5 Encounter for screening for malignant neoplasm of prostate (principal); N28.9 Disorder of kidney and ureter, unspecified; E53.8 Deficiency of other specified B group vitamins
CPT/HCPCS: 36415; 80053; 82607; 84153; 84550; 85025; G0103

== ENCOUNTER → 2025-06-12 | Outpatient (CLI) | payer MEDICARE, OTHER, SELFPAY ==
--- NOTE | 2025-06-12 09:00 | RAD_ITS ---
PROCEDURE: RIBS MATT MIN 4V W/PA CHEST 06/12/2025 REASON FOR EXAM: RIB PAIN TECHNIQUE: Procedure Code: RADRIBB Modality: DX Procedure: RIBS MATT MIN 4V W/PA CHEST COMPARISON: None FINDINGS: Findings: The lungs are clear. Scattered calcified granulomas. No rib fracture is seen. Other: RAD/Ribs Matt Min 4V w/PA Chest IMPRESSION: The lungs are clear. No rib fracture is seen. Reading Location: [id number]
--- NOTE | 2025-06-12 09:00 | RAD_ITS ---
PROCEDURE: THORACIC SPINE 2 VIEWS 06/12/2025 REASON FOR EXAM: BACK PAIN TECHNIQUE: Procedure Code: RADSPT2 Modality: DX Procedure: THORACIC SPINE 2 VIEWS COMPARISON: None FINDINGS: There is dextrocurvature of the thoracic region with less than 10 degrees of variance, which can indicate spasm. Frontal lateral and swimmer's views of the thoracic spine. Vertebral body height and alignment are maintained. There is loss of disc height throughout the thoracic region. Mineralization is normal. RAD/Thoracic Spine 2 Views IMPRESSION: There is dextrocurvature of the thoracic region with less than 10 degrees of va riance, which can indicate spasm. There is loss of disc height throughout the thoracic region. Reading Location: [facility]
--- NOTE | 2025-06-12 09:20 | RAD_ITS ---
PROCEDURE: L/S SPINE MIN 4 VIEWS 06/12/2025 REASON FOR EXAM: BACK PAIN TECHNIQUE: Procedure Code: [id number] Modality: DX Procedure: L/S SPINE MIN 4 VIEWS COMPARISON: None FINDINGS: Lumbar spine four views. Vertebral body height and alignment are maintained. There is levocurvature of the lumbar region with less than 10 degrees of variance, which can indicate spasm. There is degenerative disc disease at each level. There is moderate facet sclerosis. Mineralization is normal. There is no visible atherosclerosis. RAD/L/S Spine Min 4 Views IMPRESSION: There is levocurvature of the lumbar region with less than 10 degrees of varian ce, which can indicate spasm. There is degenerative disc disease at each level. Reading Location: [facility]
== END | disposition home or self-care (01) ==
PROVIDERS: PCP Family Medicine; Referring Provider Family Medicine; Visit Provider Family Medicine
DX: R07.89 Other chest pain (principal); M54.9 Dorsalgia, unspecified
CPT/HCPCS: 71111; 72070; 72110